=== PATIENT | female | born 1945 | race Caucasian/White ===

== ENCOUNTER → 2016-12-16 | Outpatient (CLI) | payer OTHER ==
[~2016-12-16] MED LIST: AKWA TEARS15 ML BOTH EYES; ALLOPURINOL300 MG; AMLODIPINE BESYL5 MG PO; AMOXICILLIN500 MG PO; ARICEPT10 MG PO; ARICEPT5 MG PO; ASACOL400 MG PO; ASCORBIC ACID500 M1 PO; ASPIR-LOW81 MG PO; ASPIRIN BUFFER325 MG PO; ASPIRIN325 MG PO; ATORVASTATIN CA40 MG PO; ATORVASTATIN CA80 MG PO; BACTRIM,SEPT1 TABLET PO; BENAZEPRIL HCL40 MG; BENAZEPRIL HCL40 MG PO; CALCIUM CITRAT1 EA17 PO; CATAPRES-TTS 30.3 MG TD; CELEXA20 MG PO; CELEXA40 MG PO; CITALOPRAM HBR20 MG PO; CLONAZEPAM0.5 MG PO; CLOPIDOGREL75 MG; COLACE100 MG PO; DULCOLAX10 MG PR; DURAGESIC50 MCG TD; DURAGESIC75 MCG TD; Duragesic TD; ENDOCET 5-3251 EACH PO; EYE DROP15 ML BOTH EYES; FENTANYL1 EAC1 TD; FLEET ENEMA-AD118 ML PR; GABAPENTIN300 MG; GABAPENTIN300 MG PO; GABAPENTIN400 MG PO; GENTLE LAXATIVE10 MG PR; HUMALOG100 UNIT/1 SC; HUMALOG100 UNIT/2 SC; HYDROCHLOROTHIA25 MG PO; IMDUR120 MG; IMDUR120 MG PO; IMDUR60 MG PO; INDOCIN50 MG PO; IRON325 M1 PO; ISOSORB MONO TAB 60M; ISOSORBIDE MONO60 MG PO; KLONOPIN0.5 M1 PO; KLOR-CON M2020 MEQ PO; Keflex PO; LANTUS 10100 UNITS/ SC; LANTUS 3 M100 UNITS/ SC; LANTUS 3 M100 UNITS1 SC; LEVEMIR100 UNIT/2 SC; LEVOTHYROXINE150 MCG; LEVOTHYROXINE200 MC1 PO; LIDODERM 5% P1 PATCH TD; LIPITOR80 MG PO; LISINOPRIL20 MG PO; LITE COAT ASPI325 M1 PO; LO-DOSE ASPIRIN81 M2 PO; LOPRESSOR50 MG PO; LOTENSIN10 MG PO; LOTENSIN40 MG PO; Levothroid,Synthroid PO; MEDROL DOSEPAK4 MG PO; METFORMIN HCL1000 MG PO; METFORMIN HCL500 MG PO; METOPROLOL SUC100 MG; METOPROLOL SUC100 MG PO; METOPROLOL SUCC50 MG; METOPROLOL SUCC50 MG PO; MILK OF MAGN PO; NAPROSYN500 MG PO; NEURONTIN300 MG PO; NITROSTAT,NITR0.4 M1 SL; NITROSTAT0.4 MG; NORVASC10 MG PO; NORVASC5 MG PO; NOVOLOG PE100 UNITS/ SC; OMEPRAZOLE40 M1 PO; ONDANSETRON HCL4 MG PO; PERCOCET 10/1 TABLET PO; PERCOCET 5/31 TABLET PO; PLAVIX75 MG PO; PRILOSEC40 MG PO; PROTONIX40 MG PO; RISPERDAL0.5 MG PO; SIMVASTATIN80 MG; SYNTHROID125 MCG PO; SYNTHROID150 MCG PO; SYNTHROID175 MCG PO; SYNTHROID200 MCG PO; Skelaxin PO; TOPROL XL100 MG PO; TOPROL XL50 MG PO; TRAZODONE HCL50 MG PO; TYLENOL EXTRA500 MG PO; TYLENOL REGULA325 MG PO; VICTOZA 2-0.6 MG/0.1 SC; VICTOZA0.6 MG/0.1 SC; VOLTAREN 1% GE100 GM TP; VOLTAREN75 MG PO; WELCHOL625 MG PO; ZESTRIL40 MG PO; ZOFRAN4 MG PO; ZOLOFT25 MG PO; ZOLOFT50 MG PO; Zocor PO; Zoloft PO
== END ==
LOC: RAD 08:08
DX: I70.219 Atherosclerosis of native arteries of extremities with intermittent claudication, unspecified extremity (principal); I77.1 Stricture of artery; M47.9 Spondylosis, unspecified
CPT/HCPCS: 74174

== ENCOUNTER 2017-02-15 12:01 | Inpatient (IN) | payer OTHER ==
[~2017-02-15] VITALS: Ht 165.1 cm; Wt 55.0 kg
[~2017-02-15 12:01] MED LIST changes: +ASPIRIN81 M2 PO; +BANATROL PLUS1 EACH PO; +CILOSTAZOL50 MG PO; +CITRUS CALCIUM1 EACH PO; +DOXYCYCLINE HY100 M3 PO; +GLUCAGEN1 MG IM; +IMODIUM A-D2 M2 PO; +LEVEMIR FL100 UNIT/1 SC; +RISPERDAL0.25 MG PO; +ULTRAM50 MG PO
[2017-02-15 13:22] VITALS: BP 155/67
[2017-02-15 13:28] VITALS: BP 155/67
[2017-02-15 13:59] LABS: POINT-OF-CARE METER ID UU14174212
[2017-02-15 14:18] LABS: HEMATOCRIT 27.1 % (36.0-46.0); MCH 25.2 PG (29.0-34.0); MCHC 30.3 G/DL (30.0-36.0); MEAN PLAT.VOLUME 8.6 uM^3 (9.5-12.4); PLATELET COUNT 469 K/uL (156-360); RBC DIS.WIDTH-CV 13.9 % (11.8-14.6); RBC DIS.WIDTH-SD 42.7 % (39-53); RED BLOOD COUNT 3.26 M/uL (3.80-5.20)
[2017-02-15 14:22] LABS: MCV 83.1 FL (83-99); WHITE BLOOD COUNT 13.8 K/uL (4.1-10.2)
[2017-02-15 14:28] LABS: CHLORIDE 108 mEq/L (99-109); POTASSIUM 4.1 mEq/L (3.7-5.4); SODIUM 143 mEq/L (136-147)
[2017-02-15 14:30] LABS: GLUCOSE 165 mg/dL (70-99)
[2017-02-15 14:31] LABS: ANION GAP 12 MEQ/L (2-14)
[2017-02-15 14:33] LABS: GFR ESTIMATE (CALCULATED) > 59 mL/min/
[2017-02-15 14:34] LABS: UREA NITROGEN (BUN) 10 mg/dL (9-23)
[2017-02-15 15:03] LABS: METH RESISTANT S AUREUS PCR POSITIVE (NEGATIVE)
[2017-02-15 15:12] LABS: PROBE CHECK PASS
[2017-02-15 19:56] LABS: HEMATOCRIT 21.2 % (36.0-46.0); MCH 25.5 PG (29.0-34.0); MCHC 30.7 G/DL (30.0-36.0); MCV 83.1 FL (83-99); MEAN PLAT.VOLUME 8.4 uM^3 (9.5-12.4); PLATELET COUNT 384 K/uL (156-360); RBC DIS.WIDTH-CV 13.9 % (11.8-14.6); RBC DIS.WIDTH-SD 42.5 % (39-53); WHITE BLOOD COUNT 11.7 K/uL (4.1-10.2)
[2017-02-15 19:58] LABS: RED BLOOD COUNT 2.55 M/uL (3.80-5.20)
[2017-02-15 20:09] LABS: ANION GAP 12 MEQ/L (2-14); CHLORIDE 108 MEQ/L (99-109); POTASSIUM 3.7 MEQ/L (3.7-5.4); SAMPLE HEMOLYSIS CHECK 0; SAMPLE ICTERIC CHECK 0; SAMPLE LIPEMIA CHECK 0; SODIUM 141 MEQ/L (136-147)
[2017-02-15 20:14] LABS: GFR ESTIMATE (CALCULATED) > 59 mL/min/; GLUCOSE 210 mg/dL (70-99); TROP-I INTERPRETATION NEGATIVE; TROPONIN-I 0.11 ng/mL (0.0-0.30); UREA NITROGEN (BUN) 10 mg/dL (9-23)
[2017-02-16] VITALS (13 sets, daily range): BP systolic 99–167; BP diastolic 29–57
[2017-02-16 01:09] LABS: POINT-OF-CARE METER ID UU13113731
[2017-02-16 09:28] LABS: HEMATOCRIT 30.7 % (36.0-46.0); MCH 26.2 PG (29.0-34.0); MCHC 30.9 G/DL (30.0-36.0); MCV 84.6 FL (83-99); MEAN PLAT.VOLUME 8.7 uM^3 (9.5-12.4); PLATELET COUNT 370 K/uL (156-360); RBC DIS.WIDTH-CV 13.5 % (11.8-14.6); RBC DIS.WIDTH-SD 41.9 % (39-53); RED BLOOD COUNT 3.63 M/uL (3.80-5.20)
[2017-02-16 09:38] LABS: TROP-I INTERPRETATION NEGATIVE; TROPONIN-I 0.06 ng/mL (0.0-0.30)
[2017-02-16 09:41] LABS: ANION GAP 14 MEQ/L (2-14); CHLORIDE 110 MEQ/L (99-109); GFR ESTIMATE (CALCULATED) > 59 mL/min/; GLUCOSE 171 mg/dL (70-99); SAMPLE HEMOLYSIS CHECK 0; SAMPLE ICTERIC CHECK 0; SAMPLE LIPEMIA CHECK 0; SODIUM 144 MEQ/L (136-147); UREA NITROGEN (BUN) 10 mg/dL (9-23)
[2017-02-16 12:48] LABS: POINT-OF-CARE METER ID UU13113803
[2017-02-16 17:19] LABS: POINT-OF-CARE METER ID UU13113803
[2017-02-16 22:07] LABS: POINT-OF-CARE METER ID UU13113803
[2017-02-17] VITALS: BP 120/45
[2017-02-17 02:38] VITALS: BP 136/61
[2017-02-17 04:09] VITALS: BP 136/64
[2017-02-17 06:17] LABS: POINT-OF-CARE METER ID UU14149397
[2017-02-17] MEDS ORDERED: HYDROCODON-ACE1 EAC7 PO (09:17)
[2017-02-17] MEDS ORDERED: CLOPIDOGREL75 MG PO (09:27)
[2017-02-17 09:36] VITALS: BP 146/64
[2017-02-18] MEDS ORDERED: TYLENOL REGULA325 MG PO (13:47)
== END 2017-02-17 12:22 | DRG 253 ==
LOC: SDC 12:01 → 4WEST 12:57 → 2SOUTH 12:57 → EDSTATUS 15:10 → 2SOUTH 15:33 → 4WEST 19:07 → 3EAST 02-17 02:24
PROVIDERS: Surgery
PROC: 041K0JL Bypass Right Femoral Artery to Popliteal Artery with Synthetic Substitute, Open Approach (ICD-10-PCS; principal; 2017-02-15)
DX: E11.52 Type 2 diabetes mellitus with diabetic peripheral angiopathy with gangrene (principal); E11.621 Type 2 diabetes mellitus with foot ulcer; F03.90 Unspecified dementia, unspecified severity, without behavioral disturbance, psychotic disturbance, mood disturbance, and anxiety; L97.519 Non-pressure chronic ulcer of other part of right foot with unspecified severity; E03.9 Hypothyroidism, unspecified; E78.5 Hyperlipidemia, unspecified; I10 Essential (primary) hypertension; Z87.891 Personal history of nicotine dependence; Z86.73 Personal history of transient ischemic attack (TIA), and cerebral infarction without residual deficits; Z95.1 Presence of aortocoronary bypass graft; Z95.5 Presence of coronary angioplasty implant and graft; Z79.84 Long term (current) use of oral hypoglycemic drugs; I25.10 Atherosclerotic heart disease of native coronary artery without angina pectoris; I25.2 Old myocardial infarction; Z89.421 Acquired absence of other right toe(s); Z99.3 Dependence on wheelchair
CPT/HCPCS: 80048; 80048 91; 82948; 84484; 85027; 86870; 86900; 86901; 86920; 87641; 93005; C1768; J0690; J1170; J1644; J1650; J1815; J2710; J2720; J3010; J7120; P9016

== ENCOUNTER 2017-02-21 09:14 | Day surgery (SDC) | payer OTHER ==
[~2017-02-21] VITALS: Ht 165.1 cm; Wt 55.0 kg
[~2017-02-21 09:14] MED LIST changes: +CLOPIDOGREL75 MG PO; +HYDROCODON-ACE1 EAC7 PO
[2017-02-21 09:42] VITALS: BP 149/62
[2017-02-21 10:12] LABS: POINT-OF-CARE METER ID UU14174212; POINT-OF-CARE USER ID AHSRSCSLC11
[2017-02-21 10:40] LABS: HEMATOCRIT 33.3 % (36.0-46.0); MCH 25.6 PG (29.0-34.0); MCHC 30.3 G/DL (30.0-36.0); MCV 84.3 FL (83-99); MEAN PLAT.VOLUME 8.8 uM^3 (9.5-12.4); PLATELET COUNT 392 K/uL (156-360); RBC DIS.WIDTH-CV 13.9 % (11.8-14.6); RBC DIS.WIDTH-SD 42.9 % (39-53); RED BLOOD COUNT 3.95 M/uL (3.80-5.20); WHITE BLOOD COUNT 9.9 K/uL (4.1-10.2)
[2017-02-21 12:51] LABS: POINT-OF-CARE METER ID UU13113675
[2017-02-21 15:39] VITALS: BP 135/62
[2017-02-21 19:37] VITALS: BP 164/73
[2017-02-21 22:37] LABS: POINT-OF-CARE METER ID UU14162508
[2017-02-22] VITALS (7 sets, daily range): BP systolic 119–172; BP diastolic 44–62
[2017-02-22 02:08] LABS: C DIFF TOXIN NEGATIVE (NEGATIVE)
[2017-02-22 02:12] LABS: PROBE CHECK PASS; SPECIMEN PROCESSING CONTROL PASS
[2017-02-22 12:09] LABS: POINT-OF-CARE USER ID PUTDRM
[2017-02-22 21:52] LABS: POINT-OF-CARE METER ID UU14162508
[2017-02-23 06:30] LABS: POINT-OF-CARE METER ID UU14162508
[2017-02-23 07:30] VITALS: BP 150/70
[2017-02-23 11:40] VITALS: BP 118/59
[2017-02-23] MEDS ORDERED: CIPRO750 MG PO (11:45)
[2017-02-23 11:49] LABS: POINT-OF-CARE METER ID UU14162508
== END 2017-02-23 14:23 ==
LOC: SDC 09:14 → 2SOUTH 12:15 → 2EASTP 12:15
PROVIDERS: Surgery
DX: I70.261 Atherosclerosis of native arteries of extremities with gangrene, right leg (principal); B95.1 Streptococcus, group B, as the cause of diseases classified elsewhere; E11.621 Type 2 diabetes mellitus with foot ulcer; L97.519 Non-pressure chronic ulcer of other part of right foot with unspecified severity; L97.419 Non-pressure chronic ulcer of right heel and midfoot with unspecified severity; I10 Essential (primary) hypertension; E78.5 Hyperlipidemia, unspecified; F03.90 Unspecified dementia, unspecified severity, without behavioral disturbance, psychotic disturbance, mood disturbance, and anxiety; E03.9 Hypothyroidism, unspecified; Z79.84 Long term (current) use of oral hypoglycemic drugs; Z79.4 Long term (current) use of insulin; Z79.82 Long term (current) use of aspirin
CPT/HCPCS: 82948; 85027; 87070; 87075; 87076; 87077; 87205; 87493; G0378; J0690; J1170; J1650; J1815; J2543; J3010; J7050